=== PATIENT | female | born 1955 | race Caucasian/White ===

== ENCOUNTER → 2019-04-08 | Outpatient (CLI) | payer MEDICARE, OTHER ==
[2019-04-08 11:50] VITALS: BP 160/84; PULSE 87; RESP 18; TEMP 97.7
--- NOTE | 2019-04-08 12:36 | P.GSHP ---
History of Present Illness H&P Date: 04/08/19 Chief Complaint: intrasuctal papilloma Roxanne is a 64 year old white female with an intraductal papilloma seen in consultation for Dr. Woodson regarding this. [place] [address]. This revealed a 4 mm circumscribed lesion middle depth in the right breast. She subsequently underwent a diagnostic right breast mammogram and a right breast ultrasound. This revealed a nodular lesion for which ultrasound- guided core biopsy was performed. This was done on 102 219. This revealed an intraductal papilloma. Patient does not feel anything of concern in her breasts. She has no nipple discharge or breast pain of concern. Family history: sister: metastatic cancer ? primary Hormonal History: menarche: 10 , 1 , first born at 16, breast fed: no menopause: 48 BCP: intermittently 20 years hormones: none Surgical history: 1. Cholecystectomy 2. Right thumb 3. umbilical hernia at Medical history: 1. COPD 2. Difficulty with balance 3. Neuropathy 4. IBS Social history: Smoke: 1/2 PPD 48 years alcohol: none drugs: none - Constitutional Constitutional: Denies chills, Denies fever - EENT Comment: wears glasses deviated septum Ears: deny: decreased hearing, tinnitus Ears, nose, mouth and throat: Denies headache, Denies sore throat - Breasts Breasts: bilateral: as per HPI - Cardiovascular Cardiovascular: Reports high blood pressure, Denies chest pain, Denies shortness of breath - Respiratory Comment: COPD Respiratory: Reports cough - Gastrointestinal Comment: IBS - Genitourinary (Female) Genitourinary: Denies dysuria, Denies hematuria - Menstruation Menstruation: Reports postmenopausal - Musculoskeletal Comment: arthritis in knees - Integumentary Integumentary: Denies pruritus, Denies rash - Neurological Neurological: Denies numbness, Denies weakness - Psychiatric Psychiatric: Denies anxiety, Denies depression - Endocrine Endocrine: Denies fatigue, Denies weight change - Hematologic/Lymphatic Comment: none - Allergic/Immunologic Comment: none Past Medical History History of Any Multi-Drug Resistant Organisms: None Reported Smoking Status: Current every day smoker Medications and Allergies Home Medications Medication Instructions Recorded Confirmed Type Albuterol Inhaler [Ventolin Hfa 1 - 2 puff INHALATION RT-Q6H PRN 04/08/19 04/08/19 History Inhaler] Dicyclomine [Bentyl] 10 mg PO DAILY 04/08/19 04/08/19 History Pregabalin [Lyrica] 75 mg PO HS 04/08/19 04/08/19 History amLODIPine [Norvasc] 5 mg PO DAILY 04/08/19 04/08/19 History Allergies Allergy/AdvReac Type Severity Reaction Status Date / Time No Known Allergies Allergy Unverified 04/08/19 11:50 Surgical - Exam Vital Signs Temp Pulse Resp BP Pulse Ox 97.7 F 87 18 160/84 96 04/08/19 11:47 04/08/19 11:47 04/08/19 11:47 04/08/19 11:47 04/08/19 11:47 BMI 34.1 - General well developed, well nourished, no distress, obese - Eyes PERRL, normal ocular movement - ENT normal pinna, normal nares, no hearing loss, no congestion - Neck no masses, trachea midline, no lymphadectomy - Respiratory normal expansion, normal respiratory effort, clear to auscultation - Cardiovascular Rhythm: regular Heart Sounds: normal: S1, S2 - Abdomen Abdomen: soft, non tender, no guarding, no rigid, no rebound - Integumentary normal turgor - Neurologic no disoriented, no combative - Musculoskeletal difficulty with ambulation/neurapothy - Psychiatric oriented to time, oriented to person, oriented to place, speech is normal, memory intact breast exam: Bra: 44 B ptosis grade 3 Right breast: Multi-positional exam no dominant masses or nodules of concern Right axilla: No adenopathy of concern Left breast: Multi-positional exam dominant masses or nodules of concern Left axilla: No adenopathy of concern Results Impression: 1. Intraductal papilloma right breast 2. Fibrocystic changes bilateral 3. COPD 4. Neuropathy 5. difficulty with balance 6. IBS Plan: 1. Needle localization and excisional biopsy of area of concern right breast, this will most likely be done via a crescent mastopexy 2. Preoperative clearance from Dr. Chintan Oliveira is status post ultrasound-guided biopsy of a lesion in the right breast. This revealed an intraductal papilloma. Local excisional biopsy the area has been recommended. Risks and benefits of the procedure have been discussed. These include bleeding, infection, reaction to the anesthetic. These also include the possibility of the lesion being massive requiring a reexcision. She understands this we have also discussed surgical approaches which would include the possible approached via crescent mastopexy with some elevation of the grade 3 ptosis on the right side. She understands that this may result in some asymmetry of the breast wishes to proceed with this approach if possible. Cc: Dr. Woodson encounter: 30 minutes, > 50% in planning and counselling
== END | disposition home or self-care (01) ==
LOC: WWCWWP 10:50
PROVIDERS: ATTEND Surgery
DX: Z53.9 Procedure and treatment not carried out, unspecified reason (principal)

== ENCOUNTER 2019-06-01 10:19 | Day surgery (SDC) | payer MEDICARE, OTHER ==
[2019-05-27 11:43] VITALS: BMI 33.9
[~2019-06-01 10:19] MED LIST: DEXAMETHASONE SOD PHOSPHATE 10 MG/ML 1 ML VIAL IV ONE; HEPARIN SODIUM,PORCINE 5,000 UNIT/ML 1 ML VIAL SQ ONE; HYDROmorphone 0.5 MG/0.5 ML SYRINGE IVP PRN; LACTATED RINGERS 1,000 ML IV SCH; LIDOCAINE 1% 20 ML VIAL (10MG/ML) FOR IV START INTRADERMA PRN; ONDANSETRON 4 MG/2 ML VIAL IVP ONE; Pre Op ABX Message 1 EACH MISC MISCELLANE ONE; SCOPOLAMINE 1.5MG/72HR PATCH TRANSDERM ONE
[2019-06-01] MEDS ORDERED: ALPRAZolam 0.25 MG TAB PO ONE (10:55)
[2019-06-01 11:00] LABS: Glucose,Whole Blood 109 mg/dL (75-99)
[2019-06-01] MEDS ORDERED: LIDOCAINE 1% INJ 10MG/ML (20 ML MDV) SQ ONE (11:50)
[2019-06-01 12:00] VITALS: TEMP 98.1
[2019-06-01] MEDS ORDERED: LIDOCAINE (PF) 10 MG/ML 2 ML VIAL SQ ONE ×2 (12:38→14:34)
[2019-06-01] MEDS ORDERED: fentaNYL (PF) 50 MCG/ML 2 ML AMP ONE (13:22)
[2019-06-01] MEDS ORDERED: ePHEDrine SULFATE/0.9% NACL/PF 50 MG/5 ML SYRINGE IV ONE (13:22)
[2019-06-01] MEDS ORDERED: ROCURONIUM BROMIDE 10 MG/ML 5 ML VIAL IV ONE (13:22)
[2019-06-01] MEDS ORDERED: MIDAZOLAM 2 MG/2 ML VIAL ONE (13:22)
[2019-06-01] MEDS ORDERED: LIDOCAINE 1% INJ 10MG/ML (20 ML MDV) ONE (13:22)
[2019-06-01] MEDS ORDERED: NEOSTIGMINE 1 MG/ML 10 ML VIAL ONE (13:22)
[2019-06-01] MEDS ORDERED: PROPOFOL 10 MG/ML 20 ML VIAL IV ONE (13:22)
[2019-06-01] MEDS ORDERED: SUCCINYLCHOLINE CHLORIDE 100 MG/5 ML SYR IV ONE (13:22)
[2019-06-01] MEDS ORDERED: GLYCOPYRROLATE 0.2 MG/ML 2 ML VIAL ONE (13:22)
--- NOTE | 2019-06-01 14:18 | MM ---
EXAMINATION TYPE: MG pre op needle loc RT, MG surgical specimen RT DATE OF EXAM: 06/01/2019 COMPARISON: Ultrasound-guided right breast biopsy dated 01/26/2019 CLINICAL HISTORY: Biopsy-proven high risk lesion, intraductal papilloma the right breast TECHNIQUE: Needle localization with wire placement and surgical excision of area of concern in the right breast. FINDINGS: The procedure of needle localization with wire placement and than surgical excision was explained to the patient. Benefits, alternatives, and risks were discussed. An informed consent was then obtained. Preprocedural timeout was performed. The most suitable pathway for procedure was chosen, medial to lateral approach. The overlying skin was prepped and draped in usual sterile fashion. 10 cc of 1% lidocaine was used as anesthetic into the skin and subcutaneous tissue up to the level of area of concern. A 5 cm needle was used. It was placed via a medial to lateral approach under mammographic guidance. Subsequent 90 degrees mammogram show the needle to be in satisfactory position relative to the targeted area. At this point, wire was placed and the needle was withdrawn. The wire was fixed to patient's skin. Images were marked for surgeon. The patient tolerated the procedure well without any immediate complication. The patient was kept in the radiology department for short stay after the procedure and then taken to surgery for surgical excision. Targeted biopsy marker and wire are identified in specimen mammogram. The patient was kept in hospital for short stay after the procedure and then discharged home in stable condition. Findings were communicated with the OR by the engine tester Dixie Francis at 1411 on 06/01/2019. IMPRESSION: Successful, uncomplicated needle localization with wire placement and surgical excision of a targeted biopsy marker indicating the biopsy-proven intraductal papilloma in the right breast, full pathology results to follow. Pathology Results: Benign RIGHT BREAST, NEEDLE LOCALIZATION EXCISION: Previous biopsy site and proliferative fibrocystic changes including moderate usual type ductal hyperplasia. No residual intraductal papilloma identified. Recommendation Follow up mammogram of the right breast in 6 months. VALENTINE
--- NOTE | 2019-06-01 14:42 | P.OP ---
Date of Procedure: 06/01/19 Preoperative Diagnosis: Intraductal papilloma Postoperative Diagnosis: Intraductal papilloma Procedure(s) Performed: Needle Localization excisional biopsy for intraductal papilloma with tissue transfer for closure of defect Anesthesia: JEREMY, local Surgeon: Iwona Plascencia Estimated Blood Loss (ml): 5 IV fluids (ml): 600 Pathology: other (breast tissue) Condition: stable Disposition: same day Indications for Procedure: core Biopsy with intraductal papilloma Operative Findings: Fibrofatty breast tissue Description of Procedure: Roxanne is a 64-year-old white female who had a core biopsy done of the right breast which was positive for intraductal papilloma. Localization and excisional biopsy was recommended. The patient understood risks and benefits and wished to proceed. In the preoperative holding area ptosis an anticipated symmetry were again assessed with the patient in the upright position. Bilateral breast skin markings were placed with close measurement marking of intended new position of the right nipple areolar complex. The superior aspect of the crescent mastopexy was approximately 1-1/2 cm from the 12 o'clock position of the area. The patient was brought to the operating room and following induction of anesthesia the right breast was prepped and draped in a sterile fashion. An incision was made in the skin was scored for the crescent mastopexy. A second incision was made around the nipple areolar complex. The skin was to be removed. The skin with in this area was de-epithelialized. A curvilinear incision was made within the de-epithelialized stone adjacent to the planned lumpectomy. Dissection was then performed in the subcutaneous plane towards the targeted needle. The needle was brought out into the incision. Circumferential dissection around the targeted needle was performed. The specimen was removed and painted for orientation. Specimen radiograph confirmed the targeted in the medial margins were taken. The wound was irrigated. Hemostasis was secured and surgical clips of titanium placed to finesse the bed. Next dissection was performed through a fresh incision at the deep layer of the breast on the pectoralis major muscle. Dissection was performed. The incision on the medial and lateral breast pillars of tissue. Approximately 65 centimeters of tissue was dissected in order to mobilize the glandular breast to allow for repair of the defect from the partial mastectomy. The defect was then closed in a [id number] fashion using a 3-0 Vicryl suture. This allowed for reshaping of the breast mound to repair the defect. The defect could not be closed without mobilization of the lateral and medial breast pillars. The skin was then closed using 3-0 Vicryl suture and a 5-0 [place]. Steri- Strips were applied. The patient tolerated the procedure in stable condition. All instrument and sponge counts were correct at the end of the case.
--- NOTE | 2019-06-01 14:43 | P.DS ---
Providers Attending physician: Iwona Plascencia Primary care physician: hCepe Woodson Plan - Discharge Summary Discharge Rx Participant: No New Discharge Prescriptions: No Action amLODIPine [Norvasc] 5 mg PO DAILY Albuterol Inhaler [Ventolin Hfa Inhaler] 1 - 2 puff INHALATION DIRECTED PRN PRN Reason: Shortness Of Breath Albuterol Nebulized (Conc) [Ventolin Nebulized (Conc)] 2.5 mg INHALATION QID PRN PRN Reason: sob Dicyclomine [Bentyl] 20 mg PO BID Esomeprazole Magnesium [NexIUM] 20 mg PO DAILY predniSONE 15 mg PO DIRECTED Discharge Medication List Albuterol Inhaler [Ventolin Hfa Inhaler] 1 - 2 puff INHALATION DIRECTED PRN 04/08/19 [History] amLODIPine [Norvasc] 5 mg PO DAILY 04/08/19 [History] Albuterol Nebulized (Conc) [Ventolin Nebulized (Conc)] 2.5 mg INHALATION QID PRN 05/27/19 [History] Dicyclomine [Bentyl] 20 mg PO BID 05/27/19 [History] Esomeprazole Magnesium [NexIUM] 20 mg PO DAILY 05/27/19 [History] predniSONE 15 mg PO DIRECTED 05/31/19 [History] Follow up Appointment(s)/Referral(s): Iwona Plascencia MD [STAFF PHYSICIAN] - 06/10/19 11:30 am Activity/Diet/Wound Care/Special Instructions: Do not drive for 24 hours after discharge Wear bra at all times May shower after 48 hours Discharge Disposition: HOME SELF-CARE
[2019-06-01 15:17] VITALS: RESP 16
[2019-06-01 15:32] VITALS: BP 129/71; PULSE 88
== END 2019-06-01 15:54 | disposition home or self-care (01) ==
LOC: OR 10:19
PROVIDERS: ATTEND Surgery
DX: D24.1 Benign neoplasm of right breast (principal); N60.11 Diffuse cystic mastopathy of right breast; N62 Hypertrophy of breast; J44.9 Chronic obstructive pulmonary disease, unspecified; G62.9 Polyneuropathy, unspecified; K58.9 Irritable bowel syndrome, unspecified; K21.9 Gastro-esophageal reflux disease without esophagitis; F17.210 Nicotine dependence, cigarettes, uncomplicated; Z97.2 Presence of dental prosthetic device (complete) (partial); Z90.49 Acquired absence of other specified parts of digestive tract; Z98.890 Other specified postprocedural states; R26.81 Unsteadiness on feet; Z79.52 Long term (current) use of systemic steroids; Z79.899 Other long term (current) drug therapy
CPT/HCPCS: 19316; 19301; 88307; 76098; J2250; J2001 ×2; J1644; J1100; J2710; J2405; J3010; J0330; J2704

== ENCOUNTER → 2019-06-10 | Outpatient (CLI) | payer MEDICARE, OTHER ==
[2019-06-10 15:36] VITALS: BP 117/70; PULSE 93; RESP 18; TEMP 97.6
--- NOTE | 2019-06-10 15:47 | P.PN ---
Progress Note - Text Progress Note Date: 06/10/19 Roxanne is a 64-year-old white female status post right breast needle local excisional biopsy on . Pathology revealed proliferative fibrocystic changes at previous biopsy site no residual intraductal papilloma was identified. The patient states postprocedure she did have discomfort in her breast which has since resolved. The biopsy marker was seen in the radiographs specimen after the procedure. The patient today is complaining of some abdominal and back pain. She was seen in the emergency room at [facility]. They felt that the discomfort was from a GI source. The patient will follow with him if she has any problems. Physical exam: Lungs: Bilateral rhonchi with some wheezing at the plate bases Heart: Regular rate and rhythm Incision: Right breast clean and dry Evidence of any infection some resolving ecchymosis noted abdominal examination: At this time abdomen is soft nontender with no guarding or rebound Impression/Plan: 1. Patient status post right breast needle local excisional biopsy pathology benign 2. Repeat right breast mammogram in 6 months with physician exam at that time 3. Follow-up with primary care doctor regarding abdominal/back pain or the emergency room CC: DR. Woodson
== END ==
LOC: WWCWWP 15:25
PROVIDERS: ATTEND Surgery
DX: Z53.9 Procedure and treatment not carried out, unspecified reason (principal)

== ENCOUNTER → 2020-02-17 | Outpatient (CLI) | payer MEDICARE, OTHER | END | disposition home or self-care (01) | LOC: LABWHC1 13:44 | PROVIDERS: ATTEND Internal Medicine | DX: Z03.818 Encounter for observation for suspected exposure to other biological agents ruled out (principal) | CPT/HCPCS: U0003; C9803 ==

== ENCOUNTER → 2020-04-13 | Outpatient (CLI) | payer MEDICARE, OTHER ==
--- NOTE | 2020-04-14 11:06 | MM ---
Reason for exam: additional evaluation requested from prior study. Last mammogram was performed 1 year and 3 months ago. History: Patient is postmenopausal. Benign MG pre op needle loc RT of the right breast, June 01, 2019. Ultrasound-guided core biopsy of the right breast, January 26, 2019. Physical Findings: Nurse Summary: 4cm nodule in the right breast at 12-1 o'clock (nurse TM). MG 3D Diag Mammo W/Cad TENNILLE Bilateral CC and MLO view(s) were taken. Prior study comparison: January 26, 2019, right breast mammogram, performed at [facility]. January 19, 2019, mammogram, performed at [facility]. December 31, 2018, mammogram, performed at [facility]. January 28, 2017, bilateral foundation screening mammo. Finding: There is a 8 mm high density, lobulated mass located 3 cm from the nipple in the outer quadrant, anterior position of the left breast. Post biopsy changes in the right breast. New finding since January 26, 2019, January 19, 2019, December 31, 2018, and January 28, 2017. These results were verbally communicated with the patient and result sheet given to the patient on 04/13/20. ASSESSMENT: Incomplete: need additional imaging evaluation, BI-RAD 0 RECOMMENDATION: Ultrasound of the right breast.
--- NOTE | 2020-04-14 11:08 | USB ---
Reason for exam: additional evaluation requested from abnormal screening. History: Patient is postmenopausal. Benign MG pre op needle loc RT of the right breast, June 01, 2019. Ultrasound-guided core biopsy of the right breast, January 26, 2019. US Breast RT Right complete breast ultrasound includes all four quadrants, the retroareolar region and axilla. Finding demonstrates a 2.1 x 1.0 x 4.9cm mixed, hypoechoic lesion at 12-3 o'clock, may be resolving hematoma and a 0.4 x 0.3 x 0.3cm hypoechoic lesion at 2 o'clock. These results were verbally communicated with the patient and result sheet given to the patient on 04/13/20. ASSESSMENT: Probably benign, BI-RAD 3 RECOMMENDATION: Ultrasound of the right breast in 3 months. Follow-up diagnostic mammogram of the right breast in 6 months.
== END | disposition home or self-care (01) ==
LOC: RADMAMWWP 14:54
PROVIDERS: ATTEND Surgery
DX: R92.8 Other abnormal and inconclusive findings on diagnostic imaging of breast (principal)
CPT/HCPCS: 77066; 76641; G0279; 77062

== ENCOUNTER → 2020-04-20 | Outpatient (CLI) | payer MEDICARE, OTHER ==
[2020-04-20 14:56] VITALS: BP 128/77; PULSE 80; RESP 16; TEMP 98.1
--- NOTE | 2020-04-20 15:37 | P.PN ---
Subjective Progress Note Date: 04/20/20 Principal diagnosis: intraductal papilloma Roxanne is a 64 year old white female with an right intraductal papilloma seen in consultation initially for Dr. Woodson regarding this. Bilateral mammogram was done on . This revealed a 4 mm circumscribed lesion middle depth in the right breast. She subsequently underwent a diagnostic right breast mammogram and a right breast ultrasound. This revealed a nodular lesion for which ultrasound-guided core biopsy was performed. This was done in January of 2019. This revealed an intraductal papilloma. Patient did not feel anything of concern in her breasts. She has no nipple discharge or breast pain of concern. Needle localization and excisional biopsy was done on 06-01-19. This did not reveal any residual intraductal papilloma. At this time she does not complain of any lumps masses or nodules in her breast. She is not having any abnormal nipple discharge. Family history: sister: metastatic cancer ? primary Hormonal History: menarche: 10 , 1 , first born at 16, breast fed: no menopause: 48 BCP: intermittently 20 years hormones: none Surgical history: 1. Cholecystectomy 2. Right thumb 3. umbilical hernia at 4. left knee replacement 5. right breast open biopsy Medical history: 1. COPD 2. Difficulty with balance 3. Neuropathy 4. IBS Social history: Smoke: 1/2 PPD 48 years alcohol: none drugs: none - Constitutional Constitutional: Denies chills, Denies fever - EENT Comment: wears glasses deviated septum Ears: deny: decreased hearing, tinnitus Ears, nose, mouth and throat: Denies headache, Denies sore throat - Breasts Breasts: bilateral: as per HPI - Cardiovascular Cardiovascular: Reports high blood pressure, Denies chest pain, Denies shortness of breath - Respiratory Comment: COPD Respiratory: Reports cough - Gastrointestinal Comment: IBS - Genitourinary (Female) Genitourinary: Denies dysuria, Denies hematuria - Menstruation Menstruation: Reports postmenopausal - Musculoskeletal Comment: arthritis in knees - Integumentary Integumentary: Denies pruritus, Denies rash - Neurological Neurological: Denies numbness, Denies weakness - Psychiatric Psychiatric: Denies anxiety, Denies depression - Endocrine Endocrine: Denies fatigue, Denies weight change - Hematologic/Lymphatic Comment: none - Allergic/Immunologic Comment: none Objective - Vital Signs Vital signs: Vital Signs Temp 98.1 F 04/20/20 14:49 Pulse 80 04/20/20 14:49 Resp 16 04/20/20 14:49 BP 128/77 04/20/20 14:49 Pulse Ox 95 04/20/20 14:49 Intake & Output 04/19/20 04/20/20 04/20/20 18:59 06:59 18:59 Weight 83.461 kg - Exam BMI 29.7 - Constitutional General appearance: Present: average body habitus - EENT Eyes: Present: EOMI ENT: Present: hearing grossly normal - Neck Neck: Present: normal ROM - Respiratory Respiratory: bilateral: CTA - Cardiovascular Heart sounds: normal: S1, S2 - Gastrointestinal General gastrointestinal: Present: normal bowel sounds, soft - Integumentary Integumentary: Present: decreased turgor - Musculoskeletal Musculoskeletal Comment(s): difficulty with ambulation - Psychiatric Psychiatric: Present: A&O x's 3, appropriate affect - Additional findings Additional findings: breast exam: BRA: 46B inspection: bilateral grade 3 ptosis palpation: right breast: Mild fullness at the 12 o'clock position near prior biopsy, no dominant masses or nodules of concern, fibrocystic changes Right axilla: No adenopathy of concern Left breast: Fibrocystic changes a multi-positional exam no dominant masses or nodules of concern Left axilla: No adenopathy of concern Assessment and Plan Assessment: Impression: 1. COPD 2. Difficulty with balance 3. Neuropathy 4. IBS 5. Abnormal right breast mammogram and ultrasound 6. Mild fullness 12 o'clock position right breast near area of prior surgery Plan: 1. right breast ultrasound in 3 months 2. Right breast mammogram in 6 months 3. Follow-up after repeat ultrasound in 3 months At this time there is nothing which would warrant interventional biopsy CC: Dr. Gustafson encounter 15 minutes, > 50% of time in planning and counselling
== END | disposition home or self-care (01) ==
LOC: WWCWWP 14:43
PROVIDERS: ATTEND Surgery
DX: Z53.9 Procedure and treatment not carried out, unspecified reason (principal)

== ENCOUNTER → 2020-07-27 | Outpatient (CLI) | payer MEDICARE, OTHER ==
--- NOTE | 2020-07-28 10:54 | USB ---
Reason for exam: follow-up at short interval from prior study. History: Patient is postmenopausal. Benign MG pre op needle loc RT of the right breast, June 01, 2019. Ultrasound-guided core biopsy of the right breast, January 26, 2019. Physical Findings: Nurse did not find any significant physical abnormalities on exam. US Breast Limited RT Right limited breast ultrasound including focal area of concern, retroareolar and axilla demonstrates a 4.8 x 0.9 x 3.9cm oval, lobular, mixed lesion at 12-2 o'clock, irregular, thick walled fluid collection, stable in size from 04/13/20, presumed post operative hematoma and a 0.4 x 0.3 x 0.3cm lesion too small to characterize at 2 o'clock. These results were verbally communicated with the patient and result sheet given to the patient on 07/27/20. ASSESSMENT: Benign, BI-RAD 2 RECOMMENDATION: Follow-up diagnostic mammogram of both breasts in 9 months. Back on schedule for April 2020.
== END | disposition home or self-care (01) ==
LOC: RADUSWWP 14:53
PROVIDERS: ATTEND Surgery
DX: R92.8 Other abnormal and inconclusive findings on diagnostic imaging of breast (principal)

== ENCOUNTER → 2020-08-11 | Outpatient (CLI) | payer MEDICARE, OTHER ==
[2020-08-11 08:53] VITALS: BP 113/66; PULSE 91; RESP 16; TEMP 98
--- NOTE | 2020-08-11 09:32 | P.PN ---
Subjective Progress Note Date: 08/11/20 Principal diagnosis: fibrocystic breast disease, right breast intraductal papilloma intraductal papilloma Roxanne is a 65 year old white female with an right intraductal papilloma seen in consultation initially for Dr. Woodson regarding this. Bilateral mammogram was done on . This revealed a 4 mm circumscribed lesion middle depth in the right breast. She subsequently underwent a diagnostic right breast mammogram and a right breast ultrasound. This revealed a nodular lesion for which ultrasound-guided core biopsy was performed. This was done in January of 2019. This revealed an intraductal papilloma. Patient did not feel anything of concern in her breasts. She has no nipple discharge or breast pain of concern. Needle localization and excisional biopsy was done on 06-01-19. This did not reveal any residual intraductal papilloma. At this time she does not complain of any lumps masses or nodules in her breast. She is not having any abnormal nipple discharge. She had a bilateral mammogram performed on 1720. An 8 mm high-density lobulated mass was noted 3 cm from the nipple in the left breast. Postbiopsy changes were noted in the right breast. She subsequently underwent ultrasound of the right breast. On ultrasound of the right breast she was noted to have a 2.1 x 4.9 cm mixed hypoechoic lesion at 12 to 3 o'clock position. This was felt to be a resolving hematoma. Repeat ultrasound was recommended in 6 months which has recently been done on 420 221 which is felt to be benign BIRADS 2. Right breast ultrasound was done on 07-27-20. This was benign BIRAD 2. ( On the initial mammogram report of 1720 there was a report of 8 mm high density lesion 3 cm from the nipple on the right, this is actually in the right breast consistent with the postbiopsy area. This has been reviewed with the radiologist and an addendum is forthcoming.) The patient does not feel any new lumps masses or nodules of concern in her breast. She is not complaining of any nipple discharge. Family history: sister: metastatic cancer ? primary Hormonal History: menarche: 10 , 1 , first born at 16, breast fed: no menopause: 48 BCP: intermittently 20 years hormones: none Surgical history: 1. Cholecystectomy 2. Right thumb 3. umbilical hernia at 4. left knee replacement 5. right breast open biopsy Medical history: 1. COPD 2. Difficulty with balance 3. Neuropathy 4. IBS Social history: Smoke: 1/2 PPD 48 years alcohol: none drugs: none - Constitutional Constitutional: Denies chills, Denies fever - EENT Comment: wears glasses deviated septum Ears: deny: decreased hearing, tinnitus Ears, nose, mouth and throat: Denies headache, Denies sore throat - Breasts Breasts: bilateral: as per HPI - Cardiovascular Cardiovascular: Reports high blood pressure, Denies chest pain, Denies shortness of breath - Respiratory Comment: COPD Respiratory: Reports cough - Gastrointestinal Comment: IBS - Genitourinary (Female) Genitourinary: Denies dysuria, Denies hematuria - Menstruation Menstruation: Reports postmenopausal - Musculoskeletal Comment: arthritis in knees - Integumentary Integumentary: Denies pruritus, Denies rash - Neurological Neurological: Denies numbness, Denies weakness - Psychiatric Psychiatric: Denies anxiety, Denies depression - Endocrine Endocrine: Denies fatigue, Denies weight change - Hematologic/Lymphatic Comment: none - Allergic/Immunologic Comment: Objective - Vital Signs Vital signs: Vital Signs Temp 98.0 F 08/11/20 08:38 Pulse 91 08/11/20 08:38 Resp 16 08/11/20 08:38 BP 113/66 08/11/20 08:38 Pulse Ox 95 08/11/20 08:38 Intake & Output 08/10/20 08/11/20 08/11/20 18:59 06:59 18:59 Weight 90.718 kg - Exam BMI 32.3 - Constitutional General appearance: Present: average body habitus - EENT Eyes: Present: EOMI ENT: Present: hearing grossly normal - Neck Neck: Present: normal ROM - Respiratory Respiratory: bilateral: CTA - Cardiovascular Rhythm: regular Heart sounds: normal: S1, S2 - Gastrointestinal General gastrointestinal: Present: soft - Integumentary Integumentary: Present: normal turgor - Musculoskeletal Musculoskeletal Comment(s): uses a walker - Psychiatric Psychiatric: Present: A&O x's 3, appropriate affect, intact judgment & insight - Additional findings Additional findings: Breast exam: BRA: 44B inspection: 2 ptosis right breast well-healed scar from prior surgery, grade 3 ptosis left breast Palpation: Right breast: Well-healed scar from prior surgery, multiple positional exam no dominant masses or nodules of concern, fibrocystic changes Right axilla: No adenopathy of concern Left breast: Multiple positional exam no dominant masses or nodules of concern, fibrocystic changes Left axilla: No adenopathy of concern Assessment and Plan Assessment: Impression: 1. Stable right breast ultrasound/repeat bilateral mammogram in April 2021 2. Fibrocystic breast changes 3. Asymmetry of the nipple areolar complex patient is not interested in a symmetry procedure 4. Neuropathy resulting in difficulty with balance patient uses walker 5. COPD 6. IBS Plan: 1. Repeat bilateral mammogram in April 2021 with physician exam at that time 2. Follow up sooner if any concerns I have reviewed the mammogram report and x-rays with Dr. Watson from radiology. An addendum is being placed on the report from 1720 I have noted that the 8 mm high density lesion noted in the breast is in the right breast and not the left breast. No lesions of concern were depicted in the left breast on the mammogram. Cc: Dr. Gustafson encounter 30 minutes time spent in physical examination, reviewing medical records, and counseling.
== END ==
LOC: WWCWWP 08:30
PROVIDERS: ATTEND Surgery
DX: N60.11 Diffuse cystic mastopathy of right breast (principal); N60.12 Diffuse cystic mastopathy of left breast; G62.9 Polyneuropathy, unspecified; J44.9 Chronic obstructive pulmonary disease, unspecified; K58.9 Irritable bowel syndrome, unspecified; F17.200 Nicotine dependence, unspecified, uncomplicated

== ENCOUNTER → 2021-04-17 | Outpatient (CLI) | payer MEDICARE, OTHER ==
--- NOTE | 2021-04-19 12:33 | MM ---
Reason for exam: additional evaluation requested from prior study. Last mammogram was performed 1 year ago. History: Patient is postmenopausal. Benign MG pre op needle loc RT of the right breast, June 01, 2019. Ultrasound-guided core biopsy of the right breast, January 26, 2019. Physical Findings: Nurse Summary: 4 x 1cm nodule in the right breast at 12-2 o'clock (nurse james). MG 3D Diag Mammo W/Cad [place] Bilateral CC and MLO view(s) were taken. CC with magnification, LM with magnification, and LM view(s) were taken of the right breast. Prior study comparison: April 13, 2020, bilateral MG 3d diag mammo w/cad [place]. January 26, 2019, right breast mammogram, performed at [facility]. There are scattered fibroglandular densities. Post surgical change right breast. Previous central nodularity no longer seen. New grouped and regional calcifications central right breast at the surgical site on magnification view, suspect early fat necrosis calcifications. These results were verbally communicated with the patient and result sheet given to the patient on 04/17/21. ASSESSMENT: Incomplete: need additional imaging evaluation, BI-RAD 0 RECOMMENDATION: Ultrasound of the right breast.
--- NOTE | 2021-04-19 12:35 | USB ---
Reason for exam: additional evaluation requested from abnormal screening. History: Patient is postmenopausal. Benign MG pre op needle loc RT of the right breast, June 01, 2019. Ultrasound-guided core biopsy of the right breast, January 26, 2019. US Breast RT Right complete breast ultrasound includes all four quadrants, the retroareolar region and axilla. Finding demonstrates a 5.9 x 1.3cm mixed collection post operative x 2 years at 12-2 o'clock, small residual, elongated seroma. Otherwise, no solid or cystic lesion. These results were verbally communicated with the patient and result sheet given to the patient on 04/17/21. ASSESSMENT: Probably benign, BI-RAD 3 RECOMMENDATION: Follow-up diagnostic mammogram of the right breast in 6 months.
== END | disposition home or self-care (01) ==
LOC: RADMAMWWP 09:34
PROVIDERS: ATTEND Surgery
DX: R92.8 Other abnormal and inconclusive findings on diagnostic imaging of breast (principal); Z78.0 Asymptomatic menopausal state
CPT/HCPCS: 77066; 76641; G0279; 77062

== ENCOUNTER → 2021-04-20 | Outpatient (CLI) | payer MEDICARE, OTHER ==
[2021-04-20 11:50] VITALS: BP 110/59; PULSE 81; RESP 16; TEMP 97.8
--- NOTE | 2021-04-20 12:08 | P.PN ---
Subjective Progress Note Date: 04/20/21 Principal diagnosis: papiloma right breast prior excision fibrocystic breast disease, right breast intraductal papilloma intraductal papilloma Roxanne is a 66-year-old white female status post core biopsy of the right breast in January 2019 which revealed an intraductal papilloma. She subsequently had excision in the operating room with this area on . No residual papilloma was identified. Since that time she has been followed closely. Most recent bilateral mammogram was in and a right breast ultrasound was recommended. This was done on the same date and the seroma in the right breast was identified. She not complaining of any new lumps masses or nodules of concern in either breast. She is not complaining of any nipple discharge or skin changes. Family history: sister: metastatic cancer ? primary Hormonal History: menarche: 10 , 1 , first born at 16, breast fed: no menopause: 48 BCP: intermittently 20 years hormones: none Surgical history: 1. Cholecystectomy 2. Right thumb 3. umbilical hernia at 4. left knee replacement 5. right breast open biopsy Medical history: 1. COPD 2. Difficulty with balance 3. Neuropathy, uses a walker 4. IBS Social history: Smoke: 1/2 PPD 48 years alcohol: none drugs: none - Constitutional Constitutional: Denies chills, Denies fever - EENT Comment: wears glasses deviated septum Ears: deny: decreased hearing, tinnitus Ears, nose, mouth and throat: Denies headache, Denies sore throat - Breasts Breasts: bilateral: as per HPI - Cardiovascular Cardiovascular: Reports high blood pressure, Denies chest pain, Denies shortness of breath - Respiratory Comment: COPD Respiratory: Reports cough - Gastrointestinal Comment: IBS - Genitourinary (Female) Genitourinary: Denies dysuria, Denies hematuria - Menstruation Menstruation: Reports postmenopausal - Musculoskeletal Comment: arthritis in knees - Integumentary Integumentary: Denies pruritus, Denies rash - Neurological Neurological: Denies numbness, Denies weakness - Psychiatric Psychiatric: Denies anxiety, Denies depression - Endocrine Endocrine: Denies fatigue, Denies weight change - Hematologic/Lymphatic Comment: none - Allergic/Immunologic Comment: Objective - Vital Signs Vital signs: Vital Signs Temp 97.8 F 04/20/21 11:46 Pulse 81 04/20/21 11:46 Resp 16 04/20/21 11:46 BP 110/59 04/20/21 11:46 Pulse Ox Intake & Output 04/19/21 04/20/21 04/20/21 18:59 06:59 18:59 Weight 91.626 kg - Exam BMI 32.6 - Constitutional General appearance: Present: cooperative - EENT Eyes: Present: EOMI ENT: Present: hearing grossly normal - Neck Neck: Present: normal ROM - Respiratory Respiratory: bilateral: CTA - Cardiovascular Rhythm: regular Heart sounds: normal: S1, S2 - Gastrointestinal General gastrointestinal: Present: soft - Integumentary Integumentary: Present: normal turgor - Musculoskeletal Musculoskeletal Comment(s): uses a walker - Psychiatric Psychiatric: Present: A&O x's 3, appropriate affect, intact judgment & insight - Additional findings Additional findings: Breast Exam: Bra: 2X sports bra inspection: Bilateral grade 3 ptosis Palpation: Right breast: No dominant masses or nodules of concern Right axilla: No adenopathy of concern Left breast: No dominant masses or nodules of concern Left axilla: No adenopathy of concern Assessment and Plan Assessment: Impression: 1. Cholecystectomy 2. Right thumb 3. umbilical hernia at 4. left knee replacement 5. right breast open biopsy 6. Intraductal papilloma right breast no evidence of recurrence 7. Fibrocystic breast changes 8. Recent bilateral mammogram and right breast ultrasound [id number] Plan: 1. Repeat right breast mammogram/ and ultrasound in 6 months with physician exam at that time 2. Patient to call sooner if any questions or concerns CC: Dr. Gustafson
== END ==
LOC: WWCWWP 11:37
PROVIDERS: ATTEND Surgery
DX: N60.19 Diffuse cystic mastopathy of unspecified breast (principal); J44.9 Chronic obstructive pulmonary disease, unspecified; F17.210 Nicotine dependence, cigarettes, uncomplicated; Z90.49 Acquired absence of other specified parts of digestive tract; Z96.652 Presence of left artificial knee joint; Z98.890 Other specified postprocedural states; Z86.018 Personal history of other benign neoplasm

== ENCOUNTER → 2021-10-18 | Outpatient (CLI) | payer MEDICARE, OTHER ==
--- NOTE | 2021-10-19 14:06 | USB ---
Reason for Exam: Follow-up at short interval from prior study. Last screening mammogram was performed 6 month(s) ago. Patient History: Menarche at age 12. First Full-Term at age 16. Postmenopausal. 01/26/2019, Ultrasound-Guided Core Biopsy on the Right side. 06/01/2019, Benign Core Biopsy on the right side. Risk Values: Valencia 5 year model risk: 1.7%. NCI Lifetime model risk: 5.5%. Prior Study Comparison: 01/26/2019 Right Screening Mammogram, [facility]. 04/13/2020 Bilateral Diagnostic Mammogram, [facility]. 04/17/2021 Bilateral Diagnostic Mammogram, [facility]. Tissue Density: Right: The breast tissue is heterogeneously dense. This may lower the sensitivity of mammography. Findings: Analyzed By CAD. Mammogram Postoperative distortion right breast. Microclip's and dystrophic calcifications. No suspicious calcifications noted.. Technique: Method: Targeted. Findings: The upper inner quadrant of the right breast was scanned. Finding 1: Postsurgical Fluid. Laterality: Right. Non-Palpable Abnormality visualized. Size 18 x 15 x 61 mm. Quadrant: Upper inner. 3 cm cm from nipple. Overall Assessment: Benign, BI-RAD 2 Assessment: MG 3D diag mammo w/cad RT - Right: Incomplete: need additional imaging evaluation, BI-RAD 0. US breast limited RT - Right: Benign, BI-RAD 2. Management: Diagnostic Mammogram of both breasts in 6 months. A clinical breast exam by your physician is recommended on an annual basis and results should be correlated with mammographic findings. Results were given to the patient verbally at the time of exam. Electronically signed and approved by: Johnie Alfredo M.D. Radiologis
== END | disposition home or self-care (01) ==
LOC: RADMAMWWP 13:49
PROVIDERS: ATTEND Surgery
DX: R92.1 Mammographic calcification found on diagnostic imaging of breast (principal); Z78.0 Asymptomatic menopausal state
CPT/HCPCS: 77065; 76642; G0279; 77061

== ENCOUNTER → 2021-10-25 | Outpatient (CLI) | payer MEDICARE, OTHER ==
[2021-10-25 14:08] VITALS: BP 144/48; PULSE 90; RESP 18; TEMP 98.2
--- NOTE | 2021-10-25 14:13 | P.PN ---
Subjective Progress Note Date: 10/25/21 Principal diagnosis: right breast papilloma papiloma right breast prior excision fibrocystic breast disease, right breast intraductal papilloma intraductal papilloma Roxanne is a 66-year-old white female status post core biopsy of the right breast in January 2019 which revealed an intraductal papilloma. She subsequently had excision in the operating room with this area on . No residual papilloma was identified. Since that time she has been followed closely. Most recent bilateral mammogram was in and a right breast ultrasound was recommended. This was done on the same date and the seroma in the right breast was identified. On 10-18-21 a right breast mammogram and ultrasound were preformed. These were BIRAD 2. She is not complaining of any new lumps masses or nodules of concern in either breast. She is not complaining of any nipple discharge or skin changes. Family history: sister: metastatic cancer ? primary Hormonal History: menarche: 10 , 1 , first born at 16, breast fed: no menopause: 48 BCP: intermittently 20 years hormones: none Surgical history: 1. Cholecystectomy 2. Right thumb 3. umbilical hernia at 4. left knee replacement 5. right breast open biopsy Medical history: 1. COPD 2. Difficulty with balance 3. Neuropathy, uses a walker 4. IBS Social history: Smoke: 1/2 PPD 48 years alcohol: none drugs: none - Constitutional Constitutional: Denies chills, Denies fever - EENT Comment: wears glasses deviated septum Ears: deny: decreased hearing, tinnitus Ears, nose, mouth and throat: Denies headache, Denies sore throat - Breasts Breasts: bilateral: as per HPI - Cardiovascular Cardiovascular: Reports high blood pressure, Denies chest pain, Denies shortness of breath - Respiratory Comment: COPD Respiratory: Reports cough - Gastrointestinal Comment: IBS - Genitourinary (Female) Genitourinary: Denies dysuria, Denies hematuria - Menstruation Menstruation: Reports postmenopausal - Musculoskeletal Comment: arthritis in knees - Integumentary Integumentary: Denies pruritus, Denies rash - Neurological Neurological: Denies numbness, Denies weakness - Psychiatric Psychiatric: Denies anxiety, Denies depression - Endocrine Endocrine: Denies fatigue, Denies weight change - Hematologic/Lymphatic Comment: none - Allergic/Immunologic Comment: Objective - Constitutional General appearance: Present: cooperative - EENT Eyes: Present: EOMI ENT: Present: hearing grossly normal - Neck Neck: Present: normal ROM - Respiratory Respiratory: bilateral: CTA - Cardiovascular Rhythm: regular Heart sounds: normal: S1, S2 - Integumentary Integumentary: Present: normal turgor - Musculoskeletal Musculoskeletal Comment(s): uses a walker - Psychiatric Psychiatric: Present: A&O x's 3, appropriate affect, intact judgment & insight - Additional findings Additional findings: Breast Examination: Bra: sports bra 2X inspection: Well-healed scar right breast Palpation: Right breast: Examination reveals well-healed scar from prior surgery, no dominant masses or nodules of concern, fibrocystic changes Right axilla: No adenopathy of concern Examination of left breast deferred as this was recently done Assessment and Plan Assessment: Impression: 1. COPD 2. Difficulty with balance 3. Neuropathy, uses a walker 4. IBS 5. Fibrocystic breast changes 6. Right breast mammogram and ultrasound from [address]46 benign BIRADS 2 Plan: Bilateral mammogram in 6 months with physician exam at that time Patient to call sooner if any questions or concerns CC: Dr. Gustafson
== END ==
LOC: WWCWWP 13:44
PROVIDERS: ATTEND Surgery
DX: R92.8 Other abnormal and inconclusive findings on diagnostic imaging of breast (principal); N60.11 Diffuse cystic mastopathy of right breast; J44.9 Chronic obstructive pulmonary disease, unspecified; G62.9 Polyneuropathy, unspecified; K58.9 Irritable bowel syndrome, unspecified; F17.210 Nicotine dependence, cigarettes, uncomplicated

== ENCOUNTER → 2021-11-10 | Outpatient (CLI) | payer MEDICARE, OTHER ==
--- NOTE | 2021-11-10 12:37 | XR ---
EXAMINATION TYPE: XR hand limited LT DATE OF EXAM: 11/10/2021 11:40 AM INDICATION: Patient age:Female; 66 years old; Reason for study: [id number]; . COMPARISON: None TECHNIQUE: Frontal, lateral and oblique views of the left hand were obtained. FINDINGS: Normal alignment of the visualized joints. No acute osseous pathology is identified. No e vidence of soft tissue swelling. No evidence of subcutaneous gas near the base of the thumb. The comm on osseous structures appear intact. IMPRESSION: No acute osseous pathology.
== END | disposition home or self-care (01) ==
LOC: RADXRMAIN 11:24
PROVIDERS: ATTEND Internal Medicine
DX: M79.642 Pain in left hand (principal)

== ENCOUNTER → 2022-04-25 | Outpatient (CLI) | payer MEDICARE, OTHER ==
[2022-04-25 12:05] VITALS: BP 107/68; PULSE 84; RESP 13; TEMP 97.8
--- NOTE | 2022-04-25 12:17 | P.PN ---
Subjective Progress Note Date: 04/25/22 papiloma right breast prior excision Roxanne is a 67-year-old white female status post core biopsy of the right breast in January 2019 which revealed an intraductal papilloma. She subsequently had excision in the operating room with this area on . No residual papilloma was identified. Since that time she has been followed closely. A bilateral mammogram was done on 04-25-[address] Felipe, this was BIRAD 2. Not complaining of any lumps masses or nodules of concern in either breast. Family history: sister: metastatic cancer ? primary Hormonal History: menarche: 10 , 1 , first born at 16, breast fed: no menopause: 48 BCP: intermittently 20 years hormones: none Surgical history: 1. Cholecystectomy 2. Right thumb 3. umbilical hernia at 4. left knee replacement 5. right breast open biopsy Medical history: 1. COPD 2. Difficulty with balance 3. Neuropathy, uses a walker 4. IBS Social history: Smoke: 1/2 PPD 48 years alcohol: none drugs: none - Constitutional Constitutional: Denies chills, Denies fever - EENT Comment: wears glasses deviated septum Ears: deny: decreased hearing, tinnitus Ears, nose, mouth and throat: Denies headache, Denies sore throat - Breasts Breasts: bilateral: as per HPI - Cardiovascular Cardiovascular: Reports high blood pressure, Denies chest pain, Denies shortness of breath - Respiratory Comment: COPD Respiratory: Reports cough - Gastrointestinal Comment: IBS - Genitourinary (Female) Genitourinary: Denies dysuria, Denies hematuria - Menstruation Menstruation: Reports postmenopausal - Musculoskeletal Comment: arthritis in knees - Integumentary Integumentary: Denies pruritus, Denies rash - Neurological Neurological: Denies numbness, Denies weakness - Psychiatric Psychiatric: Denies anxiety, Denies depression - Endocrine Endocrine: Denies fatigue, Denies weight change - Hematologic/Lymphatic Comment: none - Allergic/Immunologic Comment: Objective - Vital Signs Vital signs: Vital Signs Temp 97.8 F 04/25/22 12:00 Pulse 84 04/25/22 12:00 Resp 13 04/25/22 12:00 BP 107/68 04/25/22 12:00 Pulse Ox 96 04/25/22 12:00 FiO2 Intake & Output 04/24/22 04/25/22 04/25/22 18:59 06:59 18:59 Weight 97.522 kg - Constitutional General appearance: Present: cooperative - EENT Eyes: Present: EOMI ENT: Present: hearing grossly normal - Neck Neck: Present: normal ROM - Respiratory Respiratory: bilateral: CTA - Cardiovascular Rhythm: regular Heart sounds: normal: S1, S2 - Gastrointestinal General gastrointestinal: Present: soft - Integumentary Integumentary: Present: normal turgor - Musculoskeletal Musculoskeletal: Present: gait normal - Psychiatric Psychiatric: Present: A&O x's 3, appropriate affect, intact judgment & insight - Additional findings Additional findings: Breast Examination: Bra: sports bra 2X inspection: Well-healed scar right breast Palpation: Right breast: Examination reveals well-healed scar from prior surgery, no dominant masses or nodules of concern, fibrocystic changes Right axilla: No adenopathy of concern Left breast: Multi-positional exam no dominant masses or nodules of concern Left axilla: No adenopathy of concern Assessment and Plan Assessment: Assessment and Plan Assessment: Impression: 1. COPD 2. Difficulty with balance 3. Neuropathy, uses a walker 4. IBS 5. Fibrocystic breast changes 6. Right breast mammogram and ultrasound from 05-05-22 benign BIRADS 2 Plan: Bilateral mammogram in one year Patient to call sooner if any questions or concerns CC: Dr. Heredia
== END ==
LOC: WWCWWP 11:09
PROVIDERS: ATTEND Surgery
DX: Z01.411 Encounter for gynecological examination (general) (routine) with abnormal findings (principal); J44.9 Chronic obstructive pulmonary disease, unspecified; K58.9 Irritable bowel syndrome, unspecified; N60.11 Diffuse cystic mastopathy of right breast; G62.9 Polyneuropathy, unspecified; R26.9 Unspecified abnormalities of gait and mobility; Z87.891 Personal history of nicotine dependence

== ENCOUNTER → 2022-04-25 | Outpatient (CLI) | payer MEDICARE, OTHER ==
--- NOTE | 2022-04-25 12:11 | MM ---
Reason for Exam: Follow-up at short interval from prior study. Last screening mammogram was performed 12 month(s) ago. Patient History: Menarche at age 12. First Full-Term at age 16. Postmenopausal. 01/26/2019, Ultrasound-Guided Core Biopsy on the Right side. 06/01/2019, Benign Core Biopsy on the right side. Risk Values: Valencia 5 year model risk: 1.7%. NCI Lifetime model risk: 5.2%. Tissue Density: There are scattered fibroglandular densities. Findings: Analyzed By CAD. Pattern appears stable. There is a focal asymmetry in the upper outer mid right breast, unchanged from comparison. Postsurgical changes with surgical clips are within the middle medial aspect right breast. Multiple calcifications are within the biopsy site. These are stable from most recent comparison. Overall Assessment: Benign, BI-RAD 2 Management: Screening Mammogram of both breasts in 1 year. A clinical breast exam by your physician is recommended on an annual basis and results should be correlated with mammographic findings. This exam should not preclude additional follow-up of suspicious palpable abnormalities. Results were given to the patient verbally at the time of exam. Electronically signed and approved by: Clovis Watson D.O. Radiologis
== END | disposition home or self-care (01) ==
LOC: RADMAMWWP 11:06
PROVIDERS: ATTEND Surgery
DX: R92.8 Other abnormal and inconclusive findings on diagnostic imaging of breast (principal); Z78.0 Asymptomatic menopausal state
CPT/HCPCS: 77066; G0279; 77062

== ENCOUNTER 2022-06-26 10:39 | Day surgery (SDC) | payer MEDICARE, OTHER ==
[~2022-06-26 10:39] MED LIST changes: +ALPRAZolam 0.25 MG TAB PO PRN; +ALPRAZolam 0.5 MG TAB PO PRN; +ASPIRIN 325 MG TAB PO STA; +ATORVASTATIN 80 MG TAB PO STA; -DEXAMETHASONE SOD PHOSPHATE 10 MG/ML 1 ML VIAL IV ONE; +HEPARIN SODIUM,PORCINE 10,000 UNIT in SODIUM CHLORIDE 0.9% 1,000 ML IRRIGATION PRN; +HEPARIN SODIUM,PORCINE 2,500 UNIT in SODIUM CHLORIDE 0.9% 250 ML IRRIGATION PRN; -HEPARIN SODIUM,PORCINE 5,000 UNIT/ML 1 ML VIAL SQ ONE; -HYDROmorphone 0.5 MG/0.5 ML SYRINGE IVP PRN; -LACTATED RINGERS 1,000 ML IV SCH; -LIDOCAINE 1% 20 ML VIAL (10MG/ML) FOR IV START INTRADERMA PRN; +NITROGLYCERIN SL TABS 0.4 MG TAB SUBLINGUAL PRN; -ONDANSETRON 4 MG/2 ML VIAL IVP ONE; -Pre Op ABX Message 1 EACH MISC MISCELLANE ONE; -SCOPOLAMINE 1.5MG/72HR PATCH TRANSDERM ONE; +SODIUM CHLORIDE 0.9% 1,000 ML in EMPTY BAG 1 BAG IV SCH
[2022-06-26] MEDS ORDERED: HEPARIN SODIUM 1,000 UN/ML (10ML VL) ONE (11:47)
[2022-06-26] MEDS ORDERED: fentaNYL (PF) 50 MCG/ML 2 ML AMP ONE (11:47)
[2022-06-26] MEDS ORDERED: VERAPAMIL 2.5 MG/ML 2 ML AMP ONE (11:47)
[2022-06-26] MEDS ORDERED: LIDOCAINE 1% INJ 10MG/ML (5 ML VIAL-PF) SQ ONE (12:15)
[2022-06-26] MEDS ORDERED: MIDAZOLAM 2 MG/2 ML VIAL IV ONE (12:16)
[2022-06-26] MEDS ORDERED: fentaNYL (PF) 50 MCG/ML 2 ML AMP IV ONE (12:18)
[2022-06-26] MEDS ORDERED: VERAPAMIL SYRINGE (5 MG/10 ML) INTRAARTER ONE (12:18)
[2022-06-26] MEDS ORDERED: HEPARIN SODIUM 1,000 UN/ML (10ML VL) IV ONE (12:19)
[2022-06-26] MEDS ORDERED: IOPAMIDOL-370 125ML BTL INJ ONE (12:28)
--- NOTE | 2022-06-26 12:36 | P.CARDCATH ---
Description of Procedure: PROCEDURES PERFORMED: Left heart catheterization, bilateral coronary angiography INDICATION: Abnormal stress test CONSENT:I have discussed the risks, benefits and alternative therapies for the above-mentioned procedure and for both sedation/analgesia as well as necessary blood product administration, if indicated, as they pertain to this patient. The patient has indicated understanding and acceptance of the risks and procedures discussed. PROCEDURE: After the risks, benefits and alternatives of the above mentioned procedure explained in detail with the patient, informed consent was obtained. Patient was taken to the catheterization lab and prepped and draped in usual fashion. 1% lidocaine was used to anesthetize the right radial artery. A 6- Vincentian sheath was placed in the right radial artery using modified Seldinger technique. Left coronary angiography was performed with a 5-Vincentian JL 3.5 catheter and right coronary angiography was performed with a 5-Vincentian JR5 catheter in various views. A 5-Vincentian FR5 catheter was inserted into the left ventricle and pressure measurements were obtained. The right radial sheath was removed and a TR band was placed with hemostasis achieved. The patient tolerated the procedure well. Patient was transported back to the post catheterization holding area in stable condition. Conscious Sedation: Patient was monitored under the direct supervision of vision of myself for conscious sedation using Versed and fentanyl for a total duration of 13 minutes HEMODYNAMICS: Irritable: 137/72 LV: 131/4, LVDP 13 SELECTIVE CORONARY ARTERIOGRAPHY: LEFT MAIN: The left main is a large caliber vessel which bifurcates into the LAD and circumflex. There is no significant stenosis. LEFT ANTERIOR DESCENDING CORONARY ARTERY: LAD is a large caliber vessel which wraps around to the apex. There is mid LAD 30% stenosis and otherwise mild luminal irregularities. LEFT CIRCUMFLEX CORONARY ARTERY: Left circumflex is a moderate caliber vessel with mild luminal irregularities. RIGHT CORONARY ARTERY: The right coronary artery is a large caliber vessel which gives off a PDA and PLV branch and is the dominant vessel. There is 10% proximal RCA stenosis and otherwise normal. FINAL IMPRESSION: 1. Relatively normal coronary arteries as described above other than mid LAD 30% stenosis and mild luminal irregularities. 2. Normal left sided filling pressures PLAN: 1. Aggressive risk factor modification per most recent ACC/AHA guidelines. 2. Follow-up in the office in 1-2 weeks.
== END 2022-06-26 16:24 | disposition home or self-care (01) ==
LOC: CATHCVL 10:39
PROVIDERS: ATTEND Internal Medicine
DX: I25.10 Atherosclerotic heart disease of native coronary artery without angina pectoris (principal); J44.9 Chronic obstructive pulmonary disease, unspecified; I65.23 Occlusion and stenosis of bilateral carotid arteries; I08.1 Rheumatic disorders of both mitral and tricuspid valves; I10 Essential (primary) hypertension; E78.2 Mixed hyperlipidemia; Z82.49 Family history of ischemic heart disease and other diseases of the circulatory system; G11.11 Friedreich ataxia; E87.8 Other disorders of electrolyte and fluid balance, not elsewhere classified; F17.210 Nicotine dependence, cigarettes, uncomplicated; Z79.51 Long term (current) use of inhaled steroids; Z79.899 Other long term (current) drug therapy
CPT/HCPCS: 93458; C1769; C1894; J2250; J2001; J3010; J1644; Q9967

== ENCOUNTER → 2023-05-08 | Outpatient (CLI) | payer MEDICARE, OTHER ==
--- NOTE | 2023-05-08 09:59 | MM ---
Reason for Exam: Screening (asymptomatic). Last mammogram was performed 1 year(s) and 1 month(s) ago. Patient History: Menarche at age 12. First Full-Term at age 16. Postmenopausal. 01/26/2019, Ultrasound-Guided Core Biopsy on the Right side. 06/01/2019, Benign Core Biopsy on the right side. Risk Values: Valencia 5 year model risk: 1.7%. NCI Lifetime model risk: 5.0%. Prior Study Comparison: 04/17/2021 Bilateral Diagnostic Mammogram, [facility]. 10/18/2021 Right MG 3D diag mammo w/cad [place], [facility]. 04/25/2022 Bilateral MG 3D diag mammo w/cad [place], [facility]. Tissue Density: There are scattered fibroglandular densities. Findings: Analyzed By CAD. Right breast surgical clips and calcific patient's. Left breast benign consultations. There is no suspicious group of microcalcifications or new suspicious mass. Right breast surgical clips and benign calcifications. Left breast benign consultations. There is no suspicious group of microcalcifications or new suspicious mass. Overall Assessment: Benign, BI-RAD 2 Management: Screening Mammogram of both breasts in [address] [facility] will attempt to contact patient to return for supplemental views and ultrasound if indicated. Patient should continue monthly self-breast exams. A clinical breast exam by your physician is recommended on an annual basis. This exam should not preclude additional follow-up of suspicious palpable abnormalities. Note on Valencia scores and lifetime risk: 1. A Valencia score greater than 3% is considered moderate risk. If this is the case, consider specialist referral to assess eligibility for a risk reducing agent. 2. If overall lifetime risk for the development of breast cancer is 20% or higher, the patient may qualify for future screening with alternating mammogram and breast MRI. Electronically signed and approved by: Christiano Gusman DO
== END | disposition home or self-care (01) ==
LOC: RADMAMWWP 08:47
PROVIDERS: ATTEND Surgery
DX: Z12.31 Encounter for screening mammogram for malignant neoplasm of breast (principal); Z78.0 Asymptomatic menopausal state
CPT/HCPCS: 77063; 77067

== ENCOUNTER → 2023-05-16 | Outpatient (CLI) | payer MEDICARE, OTHER ==
[2023-05-16 12:37] VITALS: BP 125/69; PULSE 95; RESP 15; TEMP 97.7
--- NOTE | 2023-05-16 12:49 | P.PN ---
Subjective Progress Note Date: 05/16/23 Principal diagnosis: intraductal papilloma right breast 05-16-23 papiloma right breast prior excision Roxanne is a 67-year-old white female status post core biopsy of the right breast in January 2019 which revealed an intraductal papilloma. She subse quently [place] [address]. No residual papilloma was identified. Since that time she has been followed closely. A bilateral mammogram was done on 05-08-23, this was BIRAD 2. and personally reviewed. Not complaining of any lumps masses or nodules of concern in either breast. Family history: sister: metastatic cancer ? primary Hormonal History: menarche: 10 , 1 , first born at 16, breast fed: no menopause: 48 BCP: intermittently 20 years hormones: none Surgical history: 1. Cholecystectomy 2. Right thumb 3. umbilical hernia at 4. left knee replacement 5. right breast open biopsy Medical history: 1. COPD 2. Difficulty with balance 3. Neuropathy, uses a walker 4. IBS 5. uses a walker Social history: Smoke: 1/2 PPD 48 years alcohol: none drugs: none - Constitutional Constitutional: Denies chills, Denies fever - EENT Comment: wears glasses deviated septum Ears: deny: decreased hearing, tinnitus Ears, nose, mouth and throat: Denies headache, Denies sore throat - Breasts Breasts: bilateral: as per HPI - Cardiovascular Cardiovascular: Reports high blood pressure, Denies chest pain, Denies shortness of breath - Respiratory Comment: COPD Respiratory: Reports cough - Gastrointestinal Comment: IBS - Genitourinary (Female) Genitourinary: Denies dysuria, Denies hematuria - Menstruation Menstruation: Reports postmenopausal - Musculoskeletal Comment: arthritis in knees - Integumentary Integumentary: Denies pruritus, Denies rash - Neurological Neurological: Denies numbness, Denies weakness - Psychiatric Psychiatric: Denies anxiety, Denies depression - Endocrine Endocrine: Denies fatigue, Denies weight change - Hematologic/Lymphatic Comment: none - Allergic/Immunologic Comment: Objective - Vital Signs Vital signs: Vital Signs Temp 97.7 F 05/16/23 12:32 Pulse 95 05/16/23 12:32 Resp 15 05/16/23 12:32 BP 125/69 05/16/23 12:32 Pulse Ox 92 L 05/16/23 12:32 FiO2 Intake & Output 05/15/23 05/16/23 05/16/23 18:59 06:59 18:59 Weight 97.069 kg - Constitutional General appearance: Present: cooperative - EENT Eyes: Present: EOMI ENT: Present: hearing grossly normal - Neck Neck: Present: normal ROM - Respiratory Details: bilateral rhonci at lung bases Respiratory: bilateral: CTA - Cardiovascular Heart sounds: normal: S1, S2 - Gastrointestinal General gastrointestinal: Present: soft - Integumentary Integumentary: Present: normal turgor - Musculoskeletal Musculoskeletal Comment(s): uses a walker due to poor balance - Psychiatric Psychiatric: Present: A&O x's 3, appropriate affect, intact judgment & insight - Additional findings Additional findings: Breast Examination: Bra: sports bra 2X inspection: Well-healed scar right breast Palpation: Right breast: Examination reveals well-healed scar from prior surgery, no dominant masses or nodules of concern, fibrocystic changes Right axilla: No adenopathy of concern Left breast: exam no dominant masses or nodules of concern Left axilla: No adenopathy of concern Assessment and Plan Assessment: Impression: 1. COPD 2. Difficulty with balance 3. Neuropathy, uses a walker 4. IBS 5. Fibrocystic breast changes 6. Right breast mammogram and ultrasound from 05-08-23 benign BIRADS 2 Plan: Bilateral mammogram in one year with appointment Patient to call sooner if any questions or concerns CC: Dr. Holliday
== END ==
LOC: WWCWWP 11:47
PROVIDERS: ATTEND Surgery
DX: Z12.31 Encounter for screening mammogram for malignant neoplasm of breast (principal); N60.11 Diffuse cystic mastopathy of right breast; R92.8 Other abnormal and inconclusive findings on diagnostic imaging of breast; J44.9 Chronic obstructive pulmonary disease, unspecified; G62.9 Polyneuropathy, unspecified; K58.9 Irritable bowel syndrome, unspecified; F17.210 Nicotine dependence, cigarettes, uncomplicated; R26.89 Other abnormalities of gait and mobility; Z79.82 Long term (current) use of aspirin; Z79.51 Long term (current) use of inhaled steroids; Z79.899 Other long term (current) drug therapy

== ENCOUNTER → 2024-06-09 | Outpatient (CLI) | payer MEDICARE, OTHER ==
--- NOTE | 2024-06-09 17:31 | MM ---
Reason for Exam: Screening (asymptomatic). Last mammogram was performed 1 year(s) and 1 month(s) ago. Patient History: Menarche at age 12. First Full-Term at age 16. Postmenopausal. Patient used Hormonal Contraceptives for 4 years. 01/26/2019, Ultrasound-Guided Core Biopsy on the Right side. 06/01/2019, Benign Core Biopsy on the right side. Risk Values: Valencia 5 year model risk: 1.7%. NCI Lifetime model risk: 4.8%. Prior Study Comparison: 10/18/2021 Right MG 3D diag mammo w/cad RT, [facility]. 04/25/2022 Bilateral MG 3D diag mammo w/cad [place], [facility]. 05/08/2023 Bilateral MG 3D screening mammo w/cad, [facility]. Tissue Density: There are scattered areas of fibroglandular density. Findings: Analyzed By CAD. Postsurgical change redemonstrated right breast with some associated fat necrosis calcifications. Adjacent global asymmetry lateral right breast middle depth is unchanged. There is no suspicious group of microcalcifications or new suspicious mass in either breast. Overall Assessment: Benign, BI-RAD 2 Management: Screening Mammogram of both breasts in 1 year. Patient should continue monthly self-breast exams. A clinical breast exam by your physician is recommended on an annual basis. This exam should not preclude additional follow-up of suspicious palpable abnormalities. Note on Valencia scores and lifetime risk: 1. A Valencia score greater than 3% is considered moderate risk. If this is the case, consider specialist referral to assess eligibility for a risk reducing agent. 2. If overall lifetime risk for the development of breast cancer is 20% or higher, the patient may qualify for future screening with alternating mammogram and breast MRI. [facility], , 06/09/2024 5:28 PM. Electronically signed and approved by: Milad Brock M.D. Radiologist
== END | disposition home or self-care (01) ==
LOC: RADMAMWWP 13:18
PROVIDERS: ATTEND Surgery
DX: Z12.31 Encounter for screening mammogram for malignant neoplasm of breast (principal); R92.323 Mammographic fibroglandular density, bilateral breasts; Z78.0 Asymptomatic menopausal state; Z92.0 Personal history of contraception
CPT/HCPCS: 77063; 77067

== ENCOUNTER → 2024-06-10 | Outpatient (CLI) | payer MEDICARE, OTHER ==
--- NOTE | 2024-06-10 12:25 | P.PN ---
Subjective Progress Note Date: 06/10/24 Principal diagnosis: papilloma right breast, fiborcystic breast disease 06-10-24 Principal diagnosis: intraductal papilloma right breast 05-16-23 papiloma right breast prior excision Roxanne is a 69-year-old white female status post core biopsy of the right breast in January 2019 which revealed an intraductal papilloma. She subsequently [place] [address]. No residual papilloma was identified. Since that time she has been followed closely. A bilateral mammogram was done on 06-09-24, this was BIRAD 2. Not complaining of any lumps masses or nodules of concern in either breast. Family history: sister: metastatic cancer ? primary Hormonal History: menarche: 10 , 1 , first born at 16, breast fed: no menopause: 48 BCP: intermittently 20 years hormones: none Surgical history: 1. Cholecystectomy 2. Right thumb 3. umbilical hernia at 4. left knee replacement 5. right breast open biopsy Medical history: 1. COPD 2. Difficulty with balance 3. Neuropathy, uses a walker 4. IBS 5. uses a walker Social history: Smoke: 1/2 PPD 48 years alcohol: none drugs: none - Constitutional Constitutional: Denies chills, Denies fever - EENT Comment: wears glasses deviated septum Ears: deny: decreased hearing, tinnitus Ears, nose, mouth and throat: Denies headache, Denies sore throat - Breasts Breasts: bilateral: as per HPI - Cardiovascular Cardiovascular: Reports high blood pressure, Denies chest pain, Denies shortness of breath - Respiratory Comment: COPD Respiratory: Reports cough - Gastrointestinal Comment: IBS - Genitourinary (Female) Genitourinary: Denies dysuria, Denies hematuria - Menstruation Menstruation: Reports postmenopausal - Musculoskeletal Comment: arthritis in knees - Integumentary Integumentary: Denies pruritus, Denies rash - Neurological Neurological: Denies numbness, Denies weakness - Psychiatric Psychiatric: Denies anxiety, Denies depression - Endocrine Endocrine: Denies fatigue, Denies weight change - Hematologic/Lymphatic Comment: none - Allergic/Immunologic Comment: Objective - Constitutional General appearance: Present: cooperative - EENT Eyes: Present: EOMI ENT: Present: hearing grossly normal - Neck Neck: Present: normal ROM - Respiratory Respiratory: bilateral: CTA - Cardiovascular Rhythm: regular Heart sounds: normal: S1, S2 - Integumentary Integumentary: Present: normal turgor - Musculoskeletal Musculoskeletal Comment(s): uses a walker - Psychiatric Psychiatric: Present: A&O x's 3, appropriate affect, intact judgment & insight - Additional findings Additional findings: Breast Examination: Bra: sports bra 2X inspection: Well-healed scar right breast Palpation: Right breast: Examination reveals well-healed scar from prior surgery, no dominant masses or nodules of concern, fibrocystic changes Right axilla: No adenopathy of concern Left breast: exam no dominant masses or nodules of concern Left axilla: No adenopathy of concern Assessment and Plan Assessment: Impression: 1. COPD 2. Difficulty with balance 3. Neuropathy, uses a walker 4. IBS 5. Fibrocystic breast changes 6. Right breast mammogram and ultrasound from 3--5-25 benign BIRADS 2 Plan: Bilateral mammogram in one year with appointment; June 2025 Patient to call sooner if any questions or concerns CC: Dr. Holliday
[2024-06-10 12:28] VITALS: BP 121/67; PULSE 69; RESP 18; TEMP 97.9
== END ==
LOC: WWCWWP 11:19
PROVIDERS: ATTEND Surgery
DX: Z12.31 Encounter for screening mammogram for malignant neoplasm of breast (principal); J44.9 Chronic obstructive pulmonary disease, unspecified; N60.11 Diffuse cystic mastopathy of right breast; G62.9 Polyneuropathy, unspecified; K58.9 Irritable bowel syndrome, unspecified; N60.12 Diffuse cystic mastopathy of left breast; Z87.891 Personal history of nicotine dependence